=== PATIENT | male | born 1945 | race Caucasian/White ===

== ENCOUNTER → 2022-01-04 | Outpatient (CLI) | payer MEDICARE, OTHER ==
[~2022-01-04] MED LIST: ALLO300 PO; ALLOPURINOL; ASPI325; ASPI81CH PO; ATOR40TA; AZIT250 PO; Amaryl2 MG PO; CEPH500 PO; FENO160; FISH1000 PO; HYDACE5 PO; HYDGUAL120 PO; JARDIANCE25 MG PO; LEVSOD75 PO; LISI20 PO; LISINOPRIL; METF500 PO; NIAC500 PO; OMACOR; PRED20 PO; Prilosec Otc20 MG PO; ROSU10TA; ROSU10TA PO; RXHYDACE PO; RXPROM25 PO
== END | disposition home or self-care (01) ==
LOC: LAB SHORT 07:51
DX: B35.1 Tinea unguium (principal)
CPT/HCPCS: 87220; 88305; 88312